=== PATIENT | male | born 1965 | race Caucasian/White ===

== ENCOUNTER → 2018-11-02 05:31 | Outpatient (CLI) | payer OTHER, MEDICARE, SELFPAY ==
--- NOTE | 2018-11-02 07:00 | CA_ITS ---
PROCEDURE: 2-D M-mode and color Doppler study INDICATIONS FOR THE TEST: Chest pain COPD Heart Murmur Tobacco Smoking Palpitations Fatigue Syncope Edema HypertensionXDiabetes Mellitus Rheumatic Fever SOBXDOE ObesityXHyperlipidemiaX Family History HD Additional History CAD,ABN EKG PATIENT INFORMATION HEIGHT: 63 WEIGHT:255 GENDER: Male B/P:127/83 2-D/M-MODE INTERPRETATION: 2-D MEASUREMENTS OBSERVED VALUES IN CMS Right Ventricular Dimension (RVDd) 3.5 Interventricular Septum (Thickness)(IVsd) 1.3 Left Ventricular Internal Dimensions(LVIDd) 5.2 Left Ventricular Posterior Wall (Thickness)(LVPWd) 1.1 Aortic Root 3.2 Aortic Cusp Separation 3.0 Left Atrial Dimensions (LAD) 3.7 2D 1. Left atrium is mildly enlarged, left ventricle is normal size, mild concentric left ventricular hypertrophy, visually estimated ejection fraction 55% with no regional wall motion abnormality. 2. The right atrium and right ventricle are mildly enlarged with normal contractility. 3. The aortic valve is minimally thickened and fibrosed. 4. The mitral and tricuspid valve leaflets are minimally thickened. 5. The pulmonic valve is poorly visualized. 6. No significant pericardial effusion noted. DOPPLER INTERROGATION: Doppler interrogation of the aortic, mitral and tricuspid valvular presence of mild mitral and tricuspid regurgitation, tricuspid regurgitation jet velocity is inadequate for calculation of the right ventricular systolic pressure, diastolic parameters are inconclusive. CONCLUSION: 1. Mildly enlarged left atrium, normal left ventricular size, mild concentric left ventricular hypertrophy, visually estimated ejection fraction 55% with no regional wall motion abnormality, diastolic parameters are inconclusive. 2. Mildly enlarged right ventricle with normal contractility. 3. Mild mitral and tricuspid regurgitation 4. No significant pericardial effusion noted.
--- NOTE | 2018-11-02 07:00 | NM_ITS ---
History and Indications: Coronary artery disease, history of SD, hypertension diabetes hyperlipidemia, shortness of breath and fatigue Procedure: Patient received a 0.4 mg of intravenous Lexiscan, resting heart rate was 66 bpm resting blood pressure 149/82, with Lexiscan maximum heart rate achieved was 82 bpm is less than 85% with moderate improvement pressure was 121/66. With Lexiscan patient complained of shortness of breath Electrocardiogram: Resting electrocardiogram showed sinus rhythm, with Lexiscan there is less than 1.[address] segment depression noted from the baseline EKG. The EKG portion of the Lexiscan Myoview is nondiagnostic. Cardiac stress and resting SPECT images: Cardiac stress and resting SPECT images were obtained using technetium 99 Myoview 30.8 mCi at stress and 10.7 mCi at stress. Gated SPECT further analysis of segmental wall motion and admission of the ejection fraction also done. Cardiac stress and rest SPECT images show decreased sensitivity in the anteroapical, inferior, apex is on the resting images suggestive of reversible ischemia, in addition there is reversible ischemia involving the inferolateral wall. Computer derived ejection fraction is 58% with no regional wall motion abnormality, right ventricle is normal size and contractility. Conclusion: 1. The EKG portion of the Lexiscan Myoview is nondiagnostic. 2. Scintigraphic evidence of reversible ischemia involving the anterior, anteroapical, apex and inferolateral wall, computer derived ejection fraction is 58% with no regional wall motion abnormality, right ventricle is normal size and contractility. 3. Abnormal Lexiscan Myoview study.
--- NOTE | 2018-11-02 10:27 | HMH.ITSHM ---
Current Home Medications as stated by this patient Soren Dior or international representative. []victoza pantoprazole atorvastatin losartan metoprolol
== END ==
PROVIDERS: Visit Provider Nurse Practitioner Family
DX: R06.09 Other forms of dyspnea (principal); R94.31 Abnormal electrocardiogram [ECG] [EKG]; I49.3 Ventricular premature depolarization; I25.10 Atherosclerotic heart disease of native coronary artery without angina pectoris; I11.9 Hypertensive heart disease without heart failure; E11.9 Type 2 diabetes mellitus without complications; E66.01 Morbid (severe) obesity due to excess calories; E78.49 Other hyperlipidemia
CPT/HCPCS: 78452; 93017; 93306; A9502; J2785

== ENCOUNTER → 2018-11-30 07:58 | Outpatient (CLI) | payer OTHER, MEDICARE, SELFPAY ==
[2018-11-30 09:31] LABS: Anion Gap 14.7 mEq/L (5-15); Blood Urea Nitrogen 15 mg/dL (7-18); Calcium 9.6 mg/dL (8.5-10.1); Carbon Dioxide 28 mmol/L (21.0-32.0); Chloride 103 mmol/L (98-107); Creatinine,Serum 0.91 mg/dL (0.70-1.30); Estimated Glomerular Filt Rate 86 ml/min (>60); GFR (African American) 105 ML/MIN (>60); Glucose 115 mg/dL (74-106); Potassium 4.7 mmoL/L (3.5-5.1); Sodium 141 mmol/L (136-145)
== END ==
PROVIDERS: Visit Provider Internal Medicine
DX: I25.10 Atherosclerotic heart disease of native coronary artery without angina pectoris (principal)
CPT/HCPCS: 36415; 80048

== ENCOUNTER → 2020-07-05 07:11 | Outpatient (CLI) | payer OTHER, MEDICARE, SELFPAY ==
--- NOTE | 2020-07-05 | CA_ITS ---
APPROVED REPORT Exam: Pharmacologic Technologist: Ana Cortez Ht: 5 ft 5 in Wt: 260 lbs BSA: 2.21 m2 HR: 92 bpm BP: 148/95 mmHg Indications: Shortness of Breath, CAD, Abnormal EKG Medical History Medications: Amlodipine,,,,, Furosemide (LASIX),,,,, Aspirin,,,,, Metoprolol,,,,, Losartan,,,,, Pantoprazole,,,,, Atorvastatin,,,,, ClonAZEPAM,,,,, CloPIdogrel,,,,, SpirOnolactone,,,,, DApagliflozin,,,,, Liraglutide,,,,, Stress Test Details Test: LEXISCAN HR Resting HR: 91 bpm Max Heart Rate (APMHR): 163 bpm Max HR Achieved: 110 bpm Target HR (85% APMHR): 138 bpm % of APMHR: 67 Recovery HR: 85 bpm BP Resting BP: 148.0/95.0 mmHg Max BP: 169.0/82.0 mmHg Recovery BP: 163.0/81.0 mmHg ECG Clinical Exercise duration: 04:02 min Highest Stage Achieved: Exercise capacity: 1.0 METs Stress ECG Conclusion Resting ECG: Normal sinus rhythm, right axis deviation, cannot rule out inferior LA. Symptoms: Mild chest pressure, shortness of air, nausea, malaise. Arrhythmias/Ectopy: None ST-T Changes: No significant chnages. Conclusion: Unremarkable Lexiscan stress. Myoview images reported separately. Test Summary REST . . . . . . . Resting REST 02:52 . . 91 . 148/ 95 . . Stage 1 . . . . . . . Myoview Injected Stage 1 01:00 . . 109 . . . . Stage 2 . . . . . . . Nausea Stage 2 . . . . . . . chest pressure Stage 2 01:00 . . 108 . 166/ 82 . . Stage 3 01:00 . . 102 . 169/ 82 . . Stage 4 01:00 . . 100 . 161/ 81 . . Stage 4 01:02 . . 100 . 161/ 81 . Stop exercise at 04:02 RECOVERY 01:00 . . 99 . . . . RECOVERY 02:00 . . 92 . 161/ 82 . . RECOVERY 03:00 . . 96 . 163/ 84 . . RECOVERY 03:35 . . 80 . 163/ 81 . . Electronically signed by : Humberto Jordan, 07/06/2020 09:43:16
--- NOTE | 2020-07-05 07:11 | NM_ITS ---
APPROVED REPORT Exam: Nuclear Stress Test Indication: Chest pain, CAD, Hx of [place], SOB, HTN, DM, High cholesterol, Former tobacco use, Family history, Abnormal EKG Patient Location: Outpatient Stress Tech: Ana Cortez [place] Tech:Carmel Cummings, ARRT, RT (R)(N) Ht: 5 ft 5 in Wt: 260 lbs HR: 92 bpm BP: 148/95 mmHg BSA: 2.21 m2 BMI: 43.2 History: Chest pain, CAD, Hx of [place], SOB, HTN, DM, High cholesterol, Former tobacco use, Family history, Abnormal EKG Procedure: Patient received a 0.4 mg of intravenous Lexiscan, resting heart rate 92 bpm, resting blood pressure 148/95 mmHg, with Lexiscan maximum heart rate achived was 108 bpm which is Less than 85 % of the maximum predicted heart rate and blood pressure was 166/82 mmHg. Electrocardiogram Resting electrocardiogram showed sinus rhythm, with Lexiscan there is less than 1.[address] segment depression noted from the baseline EKG. The EKG portion of the Lexiscan Myoview is nondiagnostic. Cardiac Stress and Resting SPECT Images: Cardiac Stress and Resting SPECT images were obtained using technetium 99m Myoview 32.0 mCi stress and 10.21 mCi at rest. Gated SPECT for the analysis of segmental wall motion and calculation of the ejection fraction also done. Cardiac stress and resting SPECT images show a small area of partial reversible defect involving the distal anterior apical wall raising the concerns for presence of mixed ischemia and scar, computer derived ejection fraction is over 65% with no regional wall motion abnormality, right ventricle is normal size and contractility. Conclusion: 1. The EKG portion of the Lexiscan Myoview is nondiagnostic. 2. Scintigraphic evidence of small area of mixed ischemia and scar involving the distal anterior apical wall. Computer derived ejection fraction is over 65% with no regional wall motion abnormality, right ventricle is normal size and contractility. 3. Likely abnormal Lexiscan Myoview study. Electronically signed by : Humberto Jordan, 07/06/2020 09:46:46
--- NOTE | 2020-07-05 07:38 | CA_ITS ---
APPROVED REPORT EXAM: Comprehensive 2D, Doppler, and color-flow Echocardiogram Work Study Student: Rebecca Christianson CRT Ht: 5 ft 5 in Wt: 263lbs BSA: 2.22 BP: 152/91 mmHg Indications: Abnormal ECG, Chest Pain, Diabetes, Obesity, Hyperlipidemia, Hypertension/HDD, ex smoker 2D Dimensions LVOT 2.07 cm (M/F) 1.5-2.5 M-Mode Dimensions RVDd 2.53 cm (0.9-2.6) LVDd 4.94 cm (3.5-5.7) LVDs 3.46 cm (3.5-5.7) IVSd 1.41 cm (0.6-1.1) PWd 0.92 cm (0.6-1.1) EF (Teich) 57.00% FS 30.00% EDV (Teich) 115.00 mL ESV (Teich) 49.50 mL LV Diastology E/A Ratio 0.80 Mitral Valve MV A Velocity 99.00 (40-130 cm/s) Left Ventricle Left atrium is mildly enlarged, left ventricle is normal size, mild concentric left ventricular hypertrophy, visually estimated ejection fraction 55% with no regional wall motion abnormality, grade 1 diastolic dysfunction seen without tissue Doppler evidence of raise left atrial pressure. Right Ventricle Right atrium and right ventricular normal size and contractility. Aortic Valve Aortic valve is minimally thickened and fibrosed, there is no aortic stenosis or aortic insufficiency. Mitral Valve Mitral valve is grossly normal, there is mild mitral regurgitation. Tricuspid Valve Tricuspid valve is grossly normal, there is mild tricuspid regurgitation, tricuspid regurgitation jet velocity is inadequate for calculation of the right ventricular systolic pressure. Pulmonic Valve Pulmonic valve is poorly visualized. Great Vessels Aortic root is normal size. Pericardium No significant pericardial effusion noted. Conclusion 1. The left atrium, normal left ventricular size, mild concentric left ventricular hypertrophy, visually estimated ejection fraction 55% with no regional wall motion abnormality, grade 1 diastolic dysfunction seen without tissue Doppler evidence of raise left atrial pressure. 2. Mild mitral and tricuspid regurgitation. 3. No significant pericardial effusion noted. Electronically signed by : Humberto Jordan, 07/06/2020 10:09:40
--- NOTE | 2020-07-05 08:21 | HMH.ITSHM ---
Current Home Medications as stated by this patient Soren Dior or termite control representative. []XIDUO VICTOZA FUROSEMIDE LOSARTAN ATORVASTATIN AMLODIPINE PANTOPRAZOLE CLOPIDOGREL SPIRONOLACTONE METOPROLOL ZOLPIDEM CLONAZEPAM
== END ==
PROVIDERS: PCP Family Medicine; Visit Provider Nurse Practitioner Family
DX: R07.89 Other chest pain (principal); R06.02 Shortness of breath; I25.10 Atherosclerotic heart disease of native coronary artery without angina pectoris; E11.9 Type 2 diabetes mellitus without complications; E66.01 Morbid (severe) obesity due to excess calories; E78.49 Other hyperlipidemia; I10 Essential (primary) hypertension; I11.9 Hypertensive heart disease without heart failure
CPT/HCPCS: 78452; 93017; 93306; A9502; J2785

== ENCOUNTER 2020-07-18 09:18 | Day surgery (SDC) | payer OTHER, MEDICARE, SELFPAY ==
[2020-07-18] VITALS (11 sets, daily range): BP systolic 89–160; BP diastolic 60–99; PULSE 68–980; RESP 18–20; TEMP 36.1–36.8; O2SAT 93–96; BMI 42.7
--- NOTE | 2020-07-18 | IR_ITS ---
APPROVED REPORT Patient Location: Outpatient Freight Separator: ANMOL Vargas RT (R) PROCEDURES Left heart catheterization Left ventriculogram Selective coronary angiogram INDICATION Known coronary artery disease, Abnormal Myoview, Accelerated angina pectoris Informed consent was obtained prior to the procedure. COMPLICATIONS None Estimated Blood Loss: less than 10 ml TECHNIQUE One percent lidocaine used to anesthetize the right anterior aspect of the wrist. The right radial artery was accessed via the Seldinger technique. A 6 Macedonian sheath was placed in the right radial artery. 2.5 mg of verapamil, 800 mcg of nitroglycerin, 1mg Lidocaine and 5000 U Heparin were given through the arterial sheath. The Chago catheter was also used to perform left heart catheterization, left ventriculogram and selective coronary angiogram. At the end of the procedure the sheath was removed good hemostasis was achieved using Traclet band, patient was transferred to the postop holding area in stable condition. ANGIOGRAPHIC RESULTS The left main artery Is an ostial 20 to 30% stenosis The left anterior descending artery Has a stent in the proximal to mid LAD which is widely patent free of in-stent restenosis. Distal to the stent the vessel transitions with a 20 to 30% stenosis into the LAD. Distally the LAD is a small caliber vessel as it supplies the apex and is significantly smaller than 1 mm, a large first diagonal artery bifurcates off the proximal LAD and has a stent originating from the proximal LAD. The stent in the diagonal artery is widely patent with a mild 20 to 30% ostial in-stent restenotic lesion. The mid diagonal artery then has a 40 to 50% concentric stenosis at a bifurcation with a smaller 1 mm superior branch and a 1.25 mm inferior branch The circumflex artery Is a nondominant vessel and has a proximal 30% stenosis with a stent in the first obtuse marginal artery which is widely patent with minimal in-stent restenosis. The second obtuse marginal artery has proximal and mid vessel 30 to 40% stenoses The right coronary artery Is a large dominant vessel and has a stent in the proximal segment which is widely patent with mild 10 to 20% in-stent restenosis. Distally there is a stent which has concentric 30% in-stent restenosis. The right coronary bifurcates into a large long posterior descending artery which has a mid vessel 40 to 50% stenosis. The posterior lateral branch has a stent in the mid segment which has 40 to 50% concentric in-stent restenosis The IYER ventriculogram reveals Preserved 60% The left ventricular end-diastolic pressure Moderate to severely elevated at 30 mmHg IMPRESSION Coronary artery disease as described above Preserved ejection fraction Moderate to severely elevated LVEDP consistent with diastolic dysfunction which likely accounts for patient's dyspnea and cardiac symptoms PLAN 1. At this point I recommend medical management for the coronary artery disease 2. Patient symptoms are most certainly stemming from the elevated LVEDP. Recommend increasing Lasix to 80 mg daily and spironolactone 100 mg daily. Patient is advised to restrict salt and attempt weight loss along with exercise 3. Recommend a sleep study if not already obtained 4. Risk factor modification 5. LDL less than 55 Electronically signed by : Radu Esparza, 07/18/2020 13:02:07
[2020-07-18 10:23] LABS: Basophils # 0.1 K/mm3 (0-0.2); Eosinophils # 0.4 K/mm3 (0.0-0.4); Hematocrit 47.1 % (42.0-52.0); Hemoglobin 15.4 g/dL (14.1-18.0); Lymphocytes # 1.6 K/mm3 (0.7-4.5); Lymphocytes % 17.2 % (10-50); Mean Corpuscular HGB Conc 32.7 g/dL (31.8-35.4); Mean Corpuscular Hemoglobin 27.8 pg (27.0-31.2); Mean Corpuscular Volume 85.2 fl (80-94); Mean Platelet Volume 8.2 fl (7.4-10.4); Monocytes # 0.6 K/mm3 (0.1-1.0); Monocytes % 6.3 % (1.7-9.3); Neutrophils # 6.7 K/mm3 (1.8-7.8); Neutrophils % 71.4 % (37.0-80.0); Platelet Count 251 K/mm3 (142-424); Red Blood Count 5.53 M/mm3 (4.60-6.20); Red Cell Distribution Width 14.2 % (11.5-17.5); White Blood Count 9.3 K/mm3 (4.8-10.8)
[2020-07-18 10:29] LABS: Chloride 102 mmol/L (98-107); Potassium 4.2 mmoL/L (3.5-5.1); Sodium 139 mmol/L (136-145)
[2020-07-18 10:32] LABS: Anion Gap 13.2 mEq/L (5-15); Blood Urea Nitrogen 12 mg/dl (9-20); Calcium 10.1 mg/dl (8.4-10.2); Carbon Dioxide 28 mmol/L (22.0-30.0); Creatinine Clearance Estimated 89 mL/min (50-200); Estimated Glomerular Filt Rate 100 ml/min (>60); GFR (African American) 121 ML/MIN (>60); Glucose 167 mg/dl (74-100)
[2020-07-18 11:07] LABS: Coronavirus 19 IgG Antibody Negative (Negative); Coronavirus 19 IgM Antibody Negative (Negative)
== END 2020-07-18 15:47 | disposition home or self-care (01) ==
LOC: CATHLAB 09:23
PROVIDERS: PCP Family Medicine; Visit Provider Internal Medicine
DX: R94.39 Abnormal result of other cardiovascular function study (principal); R07.9 Chest pain, unspecified; I25.118 Atherosclerotic heart disease of native coronary artery with other forms of angina pectoris; I50.30 Unspecified diastolic (congestive) heart failure; I11.0 Hypertensive heart disease with heart failure; E11.9 Type 2 diabetes mellitus without complications; E78.5 Hyperlipidemia, unspecified; Z95.5 Presence of coronary angioplasty implant and graft; Z79.01 Long term (current) use of anticoagulants; Z79.4 Long term (current) use of insulin; Z79.82 Long term (current) use of aspirin; Z79.899 Other long term (current) drug therapy
CPT/HCPCS: 80048; 85025; 86328; 93458; 99152; C1725; C1769; J1644; Q9967

== ENCOUNTER → 2021-02-05 07:50 | Outpatient (POV) | payer OTHER, MEDICARE, SELFPAY | PROVIDERS: Visit Provider Nurse Practitioner Family | DX: Z00.00 Encounter for general adult medical examination without abnormal findings (principal) ==

== ENCOUNTER 2021-05-11 07:11 | Day surgery (SDC) | payer OTHER, MEDICARE, SELFPAY ==
[2021-05-03 11:26] VITALS: BMI 40.7
[2021-05-11] VITALS (9 sets, daily range): BP systolic 107–158; BP diastolic 69–87; PULSE 68–83; RESP 16–18; TEMP 36.4–36.7; O2SAT 94–99
--- NOTE | 2021-05-11 07:38 | HMH.ANESCL ---
[facility] Anesthesia Checklist - Patient Identification Patient Identification: Arm Band - Structural Data Admitted From: Home Planned Operative Procedure/s: EGD/Colonoscopy Consent for Planned Operative Procedure(s) Verified: Yes - NPO Status Verified Time NPO: 00:00 - Airway Assessment C-Spine Mobility Assessed: Yes TMJ Mobility Assessed: Yes Dentition: Dentures-good fit - Neurological Assessment Level of Consciousness: Awake Hx Seizures: No Numbness or tingling in extremities: No - Anesthesia Plan Anesthesia Risk discussed: Yes Anesthesia Plan: Verified ASA Class: III Anesthesia Type: MAC [facility] History I have reviewed the patient's past medical history: Yes Medical History: Reports:: Coronary Artery Disease, Diabetes Mellitus Type 2, Hyperlipidemia, Hypertension Denies:: Cancer, Diabetes Mellitus Type 1, Internal Pacemaker, MRSA, Seizures *Have you ever received a pneumonia vaccine?: No *Have you received a flu vaccine this season?: No Other Medical History: Reports: Arthritis Anesthesia experience/problems:: None Laterality Cases: Left: Total Knee Replacement, Partial Knee Replacement, Bilateral: Tonsillectomy, Other Other Surgeries: Yes: Cardiac Catheterization. No: Pacemaker Amputation: No Fractures: No - *Social History Last grade of school completed: High school graduate Smoking Status: Former smoker Tobacco Type: cigarettes #Yrs smoked (if former smoker): 25 Smoking End Date: 03/28/2002 Alcohol Intake: former Substance Use Type: denies use *Occupational Status:: disabled Housing: house Household Members: spouse *Travel in the last 8 weeks: [facility] Family Hx:: Cancer
[2021-05-11 07:45] LABS: POC Glucose,Bedside 160 (70-110)
--- NOTE | 2021-05-11 08:43 | HMH.PROC ---
[facility] Procedure Note Procedure Note:: Upper Endoscopy Procedure Report: Esophagogastroduodenoscopy with cold biopsies and TTS balloon dilation Endoscopost: Clive Bella II, MD Referring Physician: Radu Esparza MD/J Luis Salcedo MD ([facility]) Date of Procedure: May 11, 2021 Equipment: Olympus GIF 190 standard upper endoscope Sedation: MAC sedation Indications: Mr. Dior is a 56-year-old gentleman who is here for diagnostic upper endoscopy and colonoscopy. He has had persistent left upper quadrant abdominal pain that can sometimes radiate. He has had this for about 2 years. The patient did have a lap band surgery around 2009. Bloating and early satiety. He has occasionally had food gets hung up or pills when he swallows. He does get occasional nausea. He feels like he cannot get a good deep breath. He reports no significant heartburn or reflux. He does take pantoprazole which helps to control reflux. Procedure: Prior to the procedure, a history and physical exam was performed, and patient's medications and allergies were reviewed. The risks, benefits and alternatives of the sedation and procedure were discussed with the patient. All questions were answered and informed consent was obtained. The patient was brought to the procedure room. Patient identification and proposed procedure were verified by the physician and the nurse. The patient was placed in a left lateral decubitus position and the scope was passed under direct vision. Throughout the procedure, the patient's blood pressure, pulse, and oxygen saturations were monitored continuously. The upper GI endoscopy was accomplished without difficulty. The patient tolerated the procedure well. Findings: The scope was passed directly into the upper esophagus and advanced to the third portion of the duodenum. The post bulbar duodenum and duodenal bulb were normal with normal mucosa and conniventes. The scope was withdrawn through a normal duodenal bulb and pylorus into the stomach. There was bile reflux with moderate linear reactive gastropathy of the antrum and body of the stomach. The remainder of the fundus of the stomach was grossly normal. Upon retroflexion there was a small 1 to 2 cm hiatal hernia. 2 biopsies were taken in the antrum and along the lesser curvature for histology to rule out gastritis and/or H pylori. The scope was then withdrawn into the esophagus. There was a serrated Z-line. Cold biopsies were taken at the GE junction to rule out GERD/intestinal metaplasia. There was no evidence of reflux esophagitis, Prasad's or Schatzki's ring. There were tertiary contractions and evidence of moderate esophageal dysmotility. The entire esophagus was dilated to 60 Tunisian/20 mm with a TTS hydrostatic balloon. There was some resistance at the cricopharyngeus. There was no clear evidence of any lap band in the fundus. The remainder of the esophageal mucosa was normal. Impression: 1. Cricopharyngeal spasm status post dilation to 20 mm 2. Nonerosive GERD with moderate esophageal dysmotility and small sliding hiatal hernia 3. Bile reflux with moderate linear reactive gastropathy Plan: I will follow-up the biopsies. I do feel that the patient has functional dyspepsia/functional GERD driven by gas pressure gradients. I suspect that his left upper quadrant pain is functional pain and probable functional intestinal disorder of the colon. I will proceed with diagnostic colonoscopy.
--- NOTE | 2021-05-11 09:11 | HMH.PROC ---
[facility] Procedure Note Procedure Note:: Colonoscopy Procedure Report: Colonoscopy Endoscopist: Clive Bella II, MD Referring physician: Radu Esparza MD/J Luis Salcedo MD ([facility]) Date of Procedure: May 11, 2021 Equipment: Olympus 190 variable stiffness pediatric colonoscope Sedation: MAC sedation Indication: Mr. Dior is a 56-year-old gentleman who is here for diagnostic colonoscopy secondary to left upper quadrant abdominal pain. This can sometimes radiate around into the back. He does have some bloating and intermittent nausea. He feels as if he has trouble getting a deep breath. He does report regular bowel function. He reports no rectal bleeding or weight loss. He reports no family history of colon cancer. His last colonoscopy was 5 date years ago (Dr. Hummel in [place]) and was told that he had multiple polyps. Procedure: Prior to the procedure, a history and physical exam was performed, and patient's medications and allergies were reviewed. The risks, benefits and alternatives of the sedation and procedure were discussed with the patient. All questions were answered and informed consent was obtained. The patient was brought to the procedure room. Patient identification and proposed procedure were verified by the physician and the nurse. The patient was placed in a left lateral decubitus position and the scope was passed under direct vision. Throughout the procedure, the patient's blood pressure, pulse, and oxygen saturations were monitored continuously. The colonoscopy was accomplished without difficulty. The patient tolerated the procedure well. Findings: On digital rectal examination there was normal rectal tone. There were no external hemorrhoids. The colonoscope was introduced through the anal canal to the rectum and advanced to the cecum. The ileocecal valve and appendiceal orifice were identified. The scope was advanced a short distance into the ileum which appeared grossly normal. The scope was then withdrawn into the colon. The cecum, ascending, transverse, descending, sigmoid and rectum were grossly normal. There was some angulation at the splenic flexure suggestive of splenic flexure syndrome. There were no mucosal abnormalities identified. Upon retroflexion within the rectum there were grade 1-2 internal hemorrhoids.The preparation was fair throughout with [place] Preparation Score of 7 out of 9. The cecal time was 10 minutes. Impression: 1. Normal colonoscopy with intubation of the terminal ileum 2. Splenic flexure angulation?probable functional large intestinal disorder (i.e. splenic flexure syndrome) 3. Grade 1-2 internal hemorrhoids 4. 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 This is secondary to obstipation. I will discuss dietary measures, fiber bowel regimen and treatment options.
== END 2021-05-11 10:40 | disposition home or self-care (01) ==
LOC: OUTP 07:14
PROVIDERS: PCP Family Medicine; Visit Provider Internal Medicine Gastroenterology
PROC: 0DJ08ZZ Inspection of Upper Intestinal Tract, Via Natural or Artificial Opening Endoscopic (ICD-10-PCS; CPT 43235; principal; 2021-05-11 08:30)
DX: J39.2 Other diseases of pharynx (principal); K21.9 Gastro-esophageal reflux disease without esophagitis; K22.4 Dyskinesia of esophagus; K44.9 Diaphragmatic hernia without obstruction or gangrene; K31.9 Disease of stomach and duodenum, unspecified; I25.10 Atherosclerotic heart disease of native coronary artery without angina pectoris; E11.9 Type 2 diabetes mellitus without complications; E78.5 Hyperlipidemia, unspecified; I10 Essential (primary) hypertension; Z87.891 Personal history of nicotine dependence; Z79.82 Long term (current) use of aspirin; Z79.899 Other long term (current) drug therapy
CPT/HCPCS: 43239; 43249; 82962; C1726

== ENCOUNTER → 2021-11-06 12:42 | Outpatient (CLI) | payer OTHER, MEDICARE, SELFPAY ==
[2021-11-06 14:25] LABS: Alanine Aminotransferase 36 U/L (12-78); Albumin Level 4.6 g/dl (3.5-5.0); Alkaline Phosphatase 83 U/L (38-126); Aspartate Amino Transferase 35 U/L (17-59); Bilirubin,Direct 0.1 mg/dl (0.0-0.4); Bilirubin,Indirect 0.4 mg/dL (0.0-0.9); Bilirubin,Total 0.5 mg/dl (0.2-1.3); Bilirubin,Unconjugated 0.4 mg/dL (0.0-1.1); Chol/HDL Ratio 3.8 (1-3.5); Cholesterol 123 mg/dl (140-200); HDL Cholesterol 32 mg/dl (40-60); Total Protein,Serum 7.1 g/dl (6.3-8.2); Triglycerides 137 mg/dl (30-150); VLDL Cholesterol 27 mg/dL (0-40)
[2021-11-06 14:37] LABS: Direct LDL Cholesterol 75.19 mg/dL (100-129)
== END ==
PROVIDERS: PCP Family Medicine; Visit Provider Internal Medicine
DX: R06.00 Dyspnea, unspecified (principal); I20.8 Other forms of angina pectoris; I10 Essential (primary) hypertension; E78.2 Mixed hyperlipidemia
CPT/HCPCS: 36415; 80061; 80076

== ENCOUNTER → 2022-10-16 07:28 | Outpatient (CLI) | payer OTHER, MEDICARE, SELFPAY ==
[2022-10-16 10:10] LABS: Free T4 (Free Thyroxine) 1.18 ng/dl (0.78-2.19)
[2022-10-16 10:24] LABS: Thyroid Stimulating Hormone 4.02 uIU/mL (0.465-4.68)
[2022-10-17 14:32] LABS: Testosterone,Total 367 ng/dL (264-916); Triiodothyronine (T3) Free 3.1 pg/mL (2.0-4.4)
== END ==
PROVIDERS: PCP Family Medicine; Visit Provider Internal Medicine
DX: E11.9 Type 2 diabetes mellitus without complications (principal); E78.5 Hyperlipidemia, unspecified; I10 Essential (primary) hypertension; I25.10 Atherosclerotic heart disease of native coronary artery without angina pectoris; I49.3 Ventricular premature depolarization; R00.2 Palpitations; R53.83 Other fatigue
CPT/HCPCS: 36415; 84403; 84439; 84443; 84481